=== PATIENT | male | born 1970 | race Two or more races ===

== ENCOUNTER → 2024-10-16 | Outpatient (CLI) | payer MEDICAID, SELFPAY ==
--- NOTE | 2024-10-16 14:00 | XR_ITS ---
Examination: Knee bilateral, 6 views Technique: Knee AP, lateral, oblique, each knee total 6 views Date and time of exam: October 16, 2024 1410 hours Indications: Sudden onset knee pain beginning one week ago Findings: Mild osteopenia. Tibial [place] proximal right tibia No fracture or dislocation involving Bilateral mild to moderate tricompartment osteoarthritis, most prominent medial joint spaces Impression: Bilateral mild to moderate tricompartment osteoarthritis
== END | disposition home or self-care (01) ==
PROVIDERS: PCP Nurse Practitioner; Referring Provider Nurse Practitioner; Visit Provider Nurse Practitioner
DX: M17.0 Bilateral primary osteoarthritis of knee (principal)
CPT/HCPCS: 73562

== ENCOUNTER → 2025-01-08 | Outpatient (CLI) | payer MEDICAID, SELFPAY ==
--- NOTE | 2025-01-08 09:15 | XR_ITS ---
Examination: Transrectal prostate sonography TECHNIQUE: Grayscale transrectal sonographic images prostate Date and time: January 08, 2025 at 0957 hours INDICATIONS: Elevated PSA on laboratory examination several weeks ago. FINDINGS: Prostate 4.4 x 4.9 x 5.2 cm volume 58 cc Prostate nodule protruding into the bladder 2.2 x 2.2 x 2.2 cm IMPRESSION: Significant prostatomegaly 2.2 x 2.2 x 2.2 cm prostate nodule
== END | disposition home or self-care (01) ==
LOC: CDIM 09:13
PROVIDERS: PCP Nurse Practitioner; Referring Provider Nurse Practitioner; Visit Provider Nurse Practitioner
DX: N40.2 Nodular prostate without lower urinary tract symptoms (principal)
CPT/HCPCS: 76872

== ENCOUNTER 2025-02-24 15:23 | Outpatient (RCR) | payer MEDICAID, SELFPAY ==
--- NOTE | 2025-02-24 15:42 | PTNOTE_ITS ---
PT OP Initial Eval Patient Information Outpatient Physical Therapy Treatment Date: 02/24/25 Visit Reasons: Bilateral knees Medical Diagnosis: M17.0 Start of Care: 02/24/25 Date of Onset: 1.5 yrs Smoking Status Smoking Status: Never smoker Initial Assessment Subjective: Pt is 53 yr old kazakh speaking male who reports B knee pain x1.5 yrs. Increased pain with prolonged walking, standing and sleeping on R side. 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 PMH: none reported Imaging: Xray report on chart Pt goal: to get rid of the pain Objective: B knee AROM: ? Flexion: full ? Extension: full ? SLR: 55 deg with slight extensor lag ? Strength: B quads 4-/5 limited by patella compression pain, hamstrings 4/5 [facility]'s positive Varus/Valgus stress: min gapping with pain R, moderate gapping L Thessely's test: positive Assessment: Pt presents with B knee rotation sensitivity consistent with meniscus irritation and OA. He won't likely benefit from skilled therapy and he has poor rehab potential to meet goals due to severity and chronicity of ssx. PT recommends further diagnostic imaging such as MRI. Short Term and Assisted Goals Eval and D/C Treatment Plan Eval and D/C Certification Dates: 02/25/24 to 03/26/25 Procedure Charges OP PT Eval Mod Complex 30 minutes: Yes
== END 2025-03-05 23:59 | disposition home or self-care (01) ==
LOC: CPTX 15:23
PROVIDERS: PCP Nurse Practitioner; Referring Provider Nurse Practitioner; Visit Provider Nurse Practitioner
DX: M25.562 Pain in left knee (principal); M25.561 Pain in right knee; M17.0 Bilateral primary osteoarthritis of knee
CPT/HCPCS: 97162